=== PATIENT | female | born 1945 | race American Indian/Alaskan Native ===

== ENCOUNTER 2017-03-09 17:45 | Emergency (ER) | payer MEDICARE, MEDICAID ==
[2017-03-09 17:45] VITALS: BMI 20.1
[2017-03-09 17:55] VITALS: BP 124/52; PULSE 79; RESP 17; TEMP 97.9; O2SAT 97
--- NOTE | 2017-03-09 18:07 | ED PDOC ---
Lower Extremity Pain/Injury Time Seen by Provider: 03/09/17 17:56 Chief Complaint (Nursing): Lower Extremity Problem/Injury Chief Complaint (Provider): Bilat Leg Pain History Per: Patient History/Exam Limitations: no limitations Onset/Duration Of Symptoms: Persistent (1 week) Current Symptoms Are (Timing): Still Present Additional Complaint(s): Gabriela Sotomayor is a 71 y/o female, with a pertinent past medical history of DVT, PE, Osteoarthritis and Fibromyalgia, presenting to the ER on 03/09/2017 with complaints of bilateral leg pain and swelling over the past week. Patient reports pain, which is atraumatic, is strictly localized in her legs w. She states she took Oxycodone for her pain at 10:30 AM this morning. She denies any associated calf pain, shortness of breath, chest pain, or shortness of breath. Patient also notes she takes Plavix because she had a stroke about a year ago, in which she was admitted in this hospital. Past Medical History Reviewed: Historical Data, Nursing Documentation, Vital Signs Vital Signs: Last Vital Signs Temp 97.9 F 03/09/17 17:50 Pulse 79 03/09/17 17:50 Resp 17 03/09/17 17:50 BP 124/52 L 03/09/17 17:50 Pulse Ox 97 03/09/17 17:50 - Medical History PMH: Arthritis, Asthma, Back Problems, COPD, Depression, HTN, Hypercholesterolemia, TIA Denies: Chronic Kidney Disease Other PMH: Osteoarthritis, Fibromyalgia - Surgical History Surgical History: Cholecystectomy - Family History Family History: States: Unknown Family Hx - Social History Current smoker - smoking cessation education provided: No Alcohol: None Drugs: Denies - Home Medications Home Medications: Ambulatory Orders Medication Instructions Recorded Aspirin [Ecotrin] 81 mg PO DAILY 10/21/13 Brimonidine Tartrate [Alphagan P] 1 drop EACHEYE BID 09/23/14 Pantoprazole Sodium [Protonix] 40 mg PO DAILY 09/23/14 Pregabalin [Lyrica] 150 mg PO BID 09/23/14 Thiamine [B-1] 100 mg PO DAILY #0 tab 09/24/14 Clopidogrel [Plavix] 75 mg PO DAILY #0 tab 10/08/14 Multivitamin4 [One-A-Day] 1 tab PO DAILY 12/29/14 Simvastatin 5 mg PO DAILY 12/29/14 Albuterol Sulfate [Proair Hfa] 2 puff IH Q6H PRN 03/01/15 [place] Oil/[place]-3 Fatty Acids 500 mg PO DAILY 03/01/15 [Fish Oil 500 mg Softgel] Albuterol HFA [Ventolin HFA 90 2 puff IH RQ6 PRN #0 inhaler 03/03/15 mcg/actuation (8 g)] Aspirin [Ecotrin] 81 mg PO DAILY #0 tabec 03/03/15 Azithromycin 500 mg PO DAILY #5 tab 03/03/15 Clopidogrel [Plavix] 75 mg PO DAILY #0 tab 03/03/15 Ferrous Sulfate [Feosol] 325 mg PO DAILY #30 tab 03/03/15 Ibuprofen [Motrin] 400 mg PO TID #30 tab 03/03/15 Multimineral/Multivitamin 1 tab PO DAILY #0 tab 03/03/15 [Therapeutic-M Tab] Promethazine/Codeine 10 ml PO Q6 #0 udc 03/03/15 [Phenergan/Codeine Oral Syrup] Lidocaine 5% [Lidoderm] 1 ea TD DAILY PRN #10 patch 03/09/17 - Allergies Allergies/Adverse Reactions: Allergies Allergy/AdvReac Type Severity Reaction Status Date / Time No Known Allergies Allergy Verified 10/04/14 19:20 Review of Systems ROS Statement: Except As Marked, All Systems Reviewed And Found Negative Constitutional: Negative for: Fever Musculoskeletal: Positive for: Leg Pain ((+) bilat ) Neurological: Negative for: Weakness, Numbness Physical Exam - Reviewed Nursing Documentation Reviewed: Yes Vital Signs Reviewed: Yes - Physical Exam Appears: Positive for: Non-toxic, In Acute Distress Skin: Positive for: Normal Color. Negative for: Rash Pulses-Dorsalis Pedis (L): 2+ Pulses-Dorsalis Pedis (R): 2+ Extremity: Positive for: Normal ROM (full ROM actively of both knees), Tenderness ((+) bilat knees ), Other ((+) visible osteophites on knees bilat ; no swelling no warmth no erythema no pallor no skin changes). Negative for: Calf Tenderness (b/l) Neurologic/Psych: Positive for: Alert, Oriented, Gait (steady, unassisted). Negative for: Motor/Sensory Deficits - ECG O2 Sat by Pulse Oximetry: 97 - Radiology X-Ray: Interpreted by K[facility] (B/L knee x-rays) X-Ray Interpretation: Other (mild DJD, no fx) - Progress ED Course And Treament: Pt. searched on [place] [employer] aware and shows that pt. gets month Rx for Oxycontin, norco, and lyrica. Last Rx was filled on 02/12/17. Medical Decision Making Medical Decision Makin:56 Initial Impression- 71 y/o female with bilat leg pain and swelling Initial Plan- * Ultram 50 mg PO * XR Left Knee * XR Right Knee Documented by Lg Julio, acting as a scribe for Vitaliy Murray PA-C All medical record entries made by the Scribe were at my direction and personally dictated by me. I have reviewed the chart and agree that the record accurately reflects my personal performance of the history, physical exam, medical decision making, and the department course for this patient. I have also personally directed, reviewed, and agree with the discharge instructions and disposition. Disposition - Clinical Impression Clinical Impression: Knee pain - Patient ED Disposition Is Patient to be Admitted: No - Disposition Disposition: Routine/Home Disposition Time: 18:53 Condition: STABLE Prescriptions: Lidocaine 5% [Lidoderm] 1 ea TD DAILY PRN #10 patch PRN Reason: pain Instructions: Knee Pain (ED) Print Language: THAI
--- NOTE | 2017-03-10 13:55 | RAD ---
PROCEDURE: BILATERAL KNEES 03/09/2017 AP lateral and sunrise views of the right and left knees performed HISTORY: Pain. COMPARISON: No prior study available comparison FINDINGS: Right knee findings: No evidence of acute displaced fracture nor dislocation. The osseous structures appear intact. There appears to be calcification in the lateral joint space margin consistent with chondrocalcinosis CPPD. ; rule out CPPD. Small marginal osteophyte seen arising from the lateral tibial plateau. Evaluation for joint effusion is limited due to clothing artifact about the distal thigh. . Left knee findings: No evidence of acute displaced fracture or dislocation. There appears to be small amount of calcification in the lateral joint space margin suggesting chondrocalcinosis; rule out PPD. There is a small there appears to be a tiny at enthesophyte arising from the anterior superior margin of the patella enthesophyte arising from the anterior superior margin of the patella Tiny marginal osteophyte arising from the medial tibial plateau. Suspect small suprapatellar joint effusion. . . There Impression: No fracture seen. Mild DJD. Chondrocalcinosis; rule out CPPD. Small suprapatellar joint effusion.
== END 2017-03-09 19:15 | disposition home or self-care (01) ==
LOC: H.ER 17:45
DX: R60.0 Localized edema (principal); M79.606 Pain in leg, unspecified; Z86.73 Personal history of transient ischemic attack (TIA), and cerebral infarction without residual deficits; E78.00 Pure hypercholesterolemia, unspecified; F32.9 Major depressive disorder, single episode, unspecified; I10 Essential (primary) hypertension; M19.90 Unspecified osteoarthritis, unspecified site; M79.7 Fibromyalgia; Z79.82 Long term (current) use of aspirin; J44.9 Chronic obstructive pulmonary disease, unspecified

== ENCOUNTER 2017-04-12 14:34 | Emergency (ER) | payer MEDICARE, MEDICAID ==
[2017-04-12] MEDS ORDERED: Sodium Chloride 0.9% 1,000 ML IV STA (14:39)
--- NOTE | 2017-04-12 14:42 | ED PDOC ---
Syncope/Near Syncope/Dizziness Time Seen by Provider: 04/12/17 14:39 Chief Complaint (Nursing): Dizziness/Lightheaded History Per: Patient Onset/Duration Of Symptoms: Mins (5) Current Symptoms Are (Timing): Better Activity At Onset Of Symptoms: Standing Associated Symptoms Preceding Syncopal Episode: No Predromal Symptoms (Sudden Onset) Possible Causative Factor(s): Lightheaded W/Standing Fall Associated With With Symptoms: No Severity: Mild Additional Complaint(s): Responded to [employer] in [facility]. Pt prior to undergoing MRI developed lightheadedness. Became diaphoretic and pale. No LOC. No fall. Sat down in chair. Denies chest pain, palpitaions or headache. On [place] and Oxycontin for leg pain. Past Medical History - Medical History PMH: Arthritis, Asthma, Back Problems, COPD, Depression, HTN, Hypercholesterolemia, TIA Denies: Chronic Kidney Disease - Surgical History Surgical History: Cholecystectomy - Family History Family History: States: Unknown Family Hx - Home Medications Home Medications: Ambulatory Orders Medication Instructions Recorded Aspirin [Ecotrin] 81 mg PO DAILY 10/21/13 Brimonidine Tartrate [Alphagan P] 1 drop EACHEYE BID 09/23/14 Pantoprazole Sodium [Protonix] 40 mg PO DAILY 09/23/14 Pregabalin [Lyrica] 150 mg PO BID 09/23/14 Thiamine [B-1] 100 mg PO DAILY #0 tab 09/24/14 Clopidogrel [Plavix] 75 mg PO DAILY #0 tab 10/08/14 Multivitamin4 [One-A-Day] 1 tab PO DAILY 12/29/14 Simvastatin 5 mg PO DAILY 12/29/14 Albuterol Sulfate [Proair Hfa] 2 puff IH Q6H PRN 03/01/15 [place] Oil/[place]-3 Fatty Acids 500 mg PO DAILY 03/01/15 [Fish Oil 500 mg Softgel] Albuterol HFA [Ventolin HFA 90 2 puff IH RQ6 PRN #0 inhaler 03/03/15 mcg/actuation (8 g)] Aspirin [Ecotrin] 81 mg PO DAILY #0 tabec 03/03/15 Azithromycin 500 mg PO DAILY #5 tab 03/03/15 Clopidogrel [Plavix] 75 mg PO DAILY #0 tab 03/03/15 Ferrous Sulfate [Feosol] 325 mg PO DAILY #30 tab 03/03/15 Ibuprofen [Motrin] 400 mg PO TID #30 tab 03/03/15 Multimineral/Multivitamin 1 tab PO DAILY #0 tab 03/03/15 [Therapeutic-M Tab] Promethazine/Codeine 10 ml PO Q6 #0 udc 03/03/15 [Phenergan/Codeine Oral Syrup] Lidocaine 5% [Lidoderm] 1 ea TD DAILY PRN #10 patch 03/09/17 - Allergies Allergies/Adverse Reactions: Allergies Allergy/AdvReac Type Severity Reaction Status Date / Time No Known Allergies Allergy Verified 04/12/17 14:37 Review of Systems ROS Statement: Except As Marked, All Systems Reviewed And Found Negative Cardiovascular: Negative for: Chest Pain, Palpitations Neurological: Positive for: Dizziness Physical Exam - Reviewed Nursing Documentation Reviewed: Yes Vital Signs Reviewed: Yes - Physical Exam Appears: Positive for: Non-toxic, No Acute Distress Head Exam: Positive for: ATRAUMATIC, NORMAL INSPECTION, NORMOCEPHALIC Skin: Positive for: Normal Color, Warm, DRY Eye Exam: Positive for: EOMI, Normal appearance, PERRL ENT: Positive for: Normal ENT Inspection Neck: Positive for: Normal, Painless ROM Cardiovascular/Chest: Positive for: Regular Rate, Rhythm Respiratory: Positive for: CNT, Normal Breath Sounds Gastrointestinal/Abdominal: Positive for: Normal Exam, Bowel Sounds, Soft Back: Positive for: Normal Inspection Extremity: Positive for: Normal ROM Neurologic/Psych: Positive for: Alert, Oriented. Negative for: Motor/Sensory Deficits - Laboratory Results Result Diagrams: 04/12/17 14:51 04/12/17 14:51 Disposition - Clinical Impression Clinical Impression: Syncope, Orthostatic hypotension - Patient ED Disposition Is Patient to be Admitted: Yes - Disposition Disposition Time: 16:48 Condition: FAIR Forms: [employer] (Turkish) - Pt Status Changed To: Hospital Disposition Of: Observation - POA Present On Arrival: None
[2017-04-12 14:55] LABS: BASO # 0.1 K/uL (0.0-0.2); BASO % 1.1 % (0.0-2.0); EOS % 0.7 % (0.0-4.0); HEMOGLOBIN 12.5 g/dL (12.0-16.0); LYMPH # 2.1 K/uL (1.0-4.3); LYMPH % 32.6 % (20.0-40.0); MEAN CORPUSCULAR HEMOGLOBIN 31.3 pg (27.0-31.0); MEAN CORPUSCULAR HGB CONC 33.3 g/dL (33.0-37.0); MEAN PLATELET VOLUME 8.8 fl (7.2-11.7); MONO # 0.6 K/uL (0.0-0.8); MONO % 8.8 % (0.0-10.0); NEUT # 3.6 K/uL (1.8-7.0); NEUT % 56.8 % (50.0-75.0); RBC 3.98 Mil/uL (3.80-5.20); RED CELL DISTRIBUTION WIDTH 12.2 % (11.5-14.5); WHITE BLOOD COUNT 6.3 K/uL (4.8-10.8)
[2017-04-12 14:56] LABS: MEAN CELL VOLUME 93.9 fl (81.0-99.0)
[2017-04-12 15:12] LABS: ALB/GLOB RATIO 1.3 (1.0-2.1); ALBUMIN 4.1 g/dL (3.5-5.0); ALT/SGPT 32 U/L (9-52); AST/SGOT 29 U/L (14-36); BLOOD UREA NITROGEN 15 mg/dl (7-17); CALCIUM 9.2 mg/dL (8.4-10.2); GFR AFRICAN-AMERICAN 60; GFR NON-AFRICAN AMERICAN 49
[2017-04-12 15:25] VITALS: PULSE 58; TEMP 97.7
--- NOTE | 2017-04-12 15:40 | CARD ---
APPROVED REPORT EKG Measurement Heart [id number] <Conclusion> Normal sinus rhythm Left axis deviation Abnormal ECG
--- NOTE | 2017-04-12 16:33 | CT ---
PROCEDURE: CT HEAD WITHOUT CONTRAST. HISTORY: r/o bleed COMPARISON: 12/29/2014. TECHNIQUE: Axial computed tomography images were obtained through the head/brain without intravenous contrast. Radiation dose: Total exam DLP = 831.99 mGy-cm. This CT exam was performed using one or more of the following dose reduction techniques: Automated exposure control, adjustment of the mA and/or kV according to patient size, and/or use of iterative reconstruction technique. FINDINGS: HEMORRHAGE: No intracranial hemorrhage. BRAIN: No mass effect or edema. No atrophy or chronic microvascular ischemic changes. VENTRICLES: Unremarkable. No hydrocephalus. CALVARIUM: Unremarkable. PARANASAL SINUSES: Unremarkable as visualized. No significant inflammatory changes. MASTOID AIR CELLS: Unremarkable as visualized. No inflammatory changes. OTHER FINDINGS: None. IMPRESSION: No acute intracranial abnormalities. No significant findings to account for the clinical presentation. No significant interval change compared to the prior examination(s).
[2017-04-12 17:01] VITALS: BP 108/60; RESP 60; O2SAT 99
== END 2017-04-12 19:45 | disposition home or self-care (01) ==
LOC: H.ER 14:34 → H.ERHOLD 16:47 → UNDOADMOB 16:47 → H.ER 19:45
DX: R55 Syncope and collapse (principal); I95.1 Orthostatic hypotension; E78.00 Pure hypercholesterolemia, unspecified; M19.90 Unspecified osteoarthritis, unspecified site
CPT/HCPCS: 70450; 80053; 84484; 85025; 93005; 99285; J7040

== ENCOUNTER 2018-03-05 22:27 | Observation (INO) | payer MEDICARE, MEDICAID ==
[2018-03-06 00:11] LABS: BASO # 0.1 K/uL (0.0-0.2); BASO % 0.8 % (0.0-2.0); EOS # 0.1 K/uL (0.0-0.7); EOS % 0.8 % (0.0-4.0); HEMOGLOBIN 9.7 g/dL (12.0-16.0); LYMPH # 2.1 K/uL (1.0-4.3); LYMPH % 28.7 % (20.0-40.0); MEAN CELL VOLUME 99.3 fl (81.0-99.0); MEAN CORPUSCULAR HEMOGLOBIN 32.6 pg (27.0-31.0); MEAN CORPUSCULAR HGB CONC 32.8 g/dL (33.0-37.0); MEAN PLATELET VOLUME 9.1 fl (7.2-11.7); MONO # 0.7 K/uL (0.0-0.8); MONO % 9.2 % (0.0-10.0); NEUT # 4.4 K/uL (1.8-7.0); NEUT % 60.5 % (50.0-75.0); RBC 2.99 Mil/uL (3.80-5.20); RED CELL DISTRIBUTION WIDTH 14.5 % (11.5-14.5); WHITE BLOOD COUNT 7.3 K/uL (4.8-10.8)
[2018-03-06 00:32] LABS: ALT/SGPT 30 U/L (9-52); AST/SGOT 27 U/L (14-36); BLOOD UREA NITROGEN 14 mg/dl (7-17); CALCIUM 7.6 mg/dL (8.4-10.2); GFR AFRICAN-AMERICAN > 60; GFR NON-AFRICAN AMERICAN 55
[2018-03-06 00:33] LABS: B-TYPE NATRIURETIC PEPTIDE 938 pg/ml (0-900); INR 1.1 (0.9-1.2); PARTIAL THROMBOPLASTIN TIME 30.3 Seconds (25.6-37.1); PROTHROMBIN TIME 11.9 Seconds (9.8-13.1)
[2018-03-06] MEDS ORDERED: Magnesium Sulfate 2 gm/50 ml 2 GM/50 ML BAG IVPB ONE (00:34)
--- NOTE | 2018-03-06 00:36 | ED PDOC ---
Lower Extremity Pain/Injury Time Seen by Provider: 03/05/18 22:43 Chief Complaint (Nursing): Lower Extremity Problem/Injury Chief Complaint (Provider): Lower Extremity Problem/Injury History Per: Patient History/Exam Limitations: no limitations Onset/Duration Of Symptoms: Days (x7) Current Symptoms Are (Timing): Still Present Additional Complaint(s): Gabriela Sotomayor is a 72 year old female with a past medical history of fibromyalgia, hypertension, anemia, and hypokalemia, who is presenting to the ED for evaluation of bilateral leg swelling, onset 1 week ago. Patient states that the swelling has been worsening since onset and is associated with pain. She denies any chest pain, shortness of breath, fever, chills, and excessive heat exposure or walking. PMD: Chris Kerns Past Medical History Reviewed: Historical Data, Nursing Documentation, Vital Signs Vital Signs: Last Vital Signs Temp 98.5 F 03/05/18 22:31 Pulse 72 03/05/18 22:31 Resp 16 03/05/18 22:31 BP 143/79 03/05/18 22:31 Pulse Ox 98 03/05/18 22:31 - Medical History PMH: Arthritis, Asthma, Back Problems, COPD, Depression, HTN, Hypercholesterolemia, TIA Denies: Chronic Kidney Disease - Surgical History Surgical History: Cholecystectomy - Family History Family History: States: Unknown Family Hx - Social History Current smoker - smoking cessation education provided: No Ex-Smoker (has not smoked in the last 12 months): Yes Alcohol: None Drugs: Denies - Home Medications Home Medications: Ambulatory Orders Medication Instructions Recorded Brimonidine 0.2% [Alphagan 0.2% 1 drop EACHEYE BID 04/12/17 Opht] Clopidogrel [Plavix] 75 mg PO DAILY 04/12/17 Dicyclomine [Bentyl] 20 mg PO QID PRN 04/12/17 Meclizine [Meclizine*] 25 mg PO TID PRN 04/12/17 Pregabalin [Lyrica] 150 mg PO BID 04/12/17 Aspirin [Aspirin Chewable] 81 mg PO DAILY 03/06/18 Calcium Carbonate [Oscal] 500 mg PO BID 03/06/18 Magnesium Oxide [Magox 400] 400 mg PO BID 03/06/18 Mirtazapine [Remeron] 3.25 mg PO HS 03/06/18 Omeprazole 40 mg PO DAILY 03/06/18 Pantoprazole Sodium [Protonix] 40 mg PO DAILY 03/06/18 Potassium Chloride 10 meq PO DAILY 03/06/18 Furosemide [Lasix] 20 mg PO DAILY #30 [facility] [place] 03/07/18 - Allergies Allergies/Adverse Reactions: Allergies Allergy/AdvReac Type Severity Reaction Status Date / Time No Known Allergies Allergy Verified 03/05/18 22:31 Review of Systems ROS Statement: Except As Marked, All Systems Reviewed And Found Negative Constitutional: Negative for: Fever, Chills Cardiovascular: Negative for: Chest Pain Respiratory: Negative for: Shortness of Breath Musculoskeletal: Positive for: Leg Pain, Other (leg swelling) Physical Exam - Reviewed Nursing Documentation Reviewed: Yes Vital Signs Reviewed: Yes - Physical Exam Appears: Positive for: Non-toxic, No Acute Distress Head Exam: Positive for: ATRAUMATIC, NORMOCEPHALIC Skin: Positive for: Warm, Dry Eye Exam: Positive for: EOMI, PERRL ENT: Negative for: Pharyngeal Erythema, Tonsillar Exudate Neck: Positive for: Painless ROM, Supple Cardiovascular/Chest: Positive for: Regular Rate, Rhythm, Chest Non Tender. Negative for: Murmur Respiratory: Positive for: Normal Breath Sounds. Negative for: Wheezing Gastrointestinal/Abdominal: Positive for: Soft. Negative for: Tenderness Back: Positive for: Normal Inspection. Negative for: Decreased ROM Extremity: Positive for: Tenderness (diffuse tenderness to palpation of lower legs), Pedal Edema (bilateral lower extremities, pitting edema; right greater than the left) Lymphatic: Negative for: Adenopathy Neurologic/Psych: Positive for: Alert. Negative for: Motor/Sensory Deficits - Laboratory Results Result Diagrams: 03/06/18 00:07 03/07/18 06:30 - ECG O2 Sat by Pulse Oximetry: 98 (RA) Pulse Ox Interpretation: Normal Medical Decision Making Medical Decision Making: Time: 23:26 Impression: Leg Edema Differentials: Dependent edema, DVT, CHF, renal failure, liver disease Plan: --B Type Natriuretic Peptide --CMP --Magnesium --Phosphorous --Troponin --CBC --Coag --Glucose, POC --US Lower Extremities Labs demonstrate critically low magnesium. Ordered IV magnesium DW pt findings and plan of care. Hospitalization for low magnesium given risk of arrythmia [facility]. Scribe Attestation: Documented by, Candida Galo acting as a scribe for Miranda Quiles MD. Provider Scribe Attestation: All medical record entries made by the Scribe were at my direction and personally dictated by me. I have reviewed the chart and agree that the record accurately reflects my personal performance of the history, physical exam, medical decision making, and the department course for this patient. I have also personally directed, reviewed, and agree with the discharge instructions and disposition. Disposition - Clinical Impression Clinical Impression: Hypomagnesemia Counseled Patient/Family Regarding: Studies Performed, Diagnosis - Disposition Disposition Time: 00:00 Condition: FAIR - Pt Status Changed To: Hospital Disposition Of: Observation - POA Present On Arrival: None
[2018-03-06] MEDS ORDERED: Magnesium Sulfate 2 gm/50 ml 2 GM/50 ML BAG ONE (01:52)
--- NOTE | 2018-03-06 08:20 | US ---
PROCEDURE: Bilateral lower extremity venous duplex Doppler. HISTORY: leg swelling bilateral COMPARISON: None available. TECHNIQUE: Bilateral common femoral, superficial femoral, popliteal and posterior tibial veins were evaluated. Flow was assessed with color Doppler, compressibility, assessment of phasic flow and augmentation response. FINDINGS: COMMON FEMORAL VEIN: Right CFV: Unremarkable. Left CFV: Unremarkable. SUPERFICIAL FEMORAL VEIN: Right SFV: Unremarkable. Left SFV: Unremarkable. POPLITEAL VEIN: Right Popliteal: Unremarkable. Left Popliteal: Unremarkable. POSTERIOR TIBIAL VEIN: Right PTV: Unremarkable. Left PTV: Unremarkable. OTHER FINDINGS: None. IMPRESSION: No evidence of deep venous thrombosis. Concordant results (preliminary interpretation) provided by [facility]. Procedure Completed: 00:25 Preliminary ([facility]) Report: Dictated and Authenticated: 00:47 Final Interpretation: 08:18
--- NOTE | 2018-03-06 08:27 | RAD ---
HISTORY: Like swelling COMPARISON: 03/01/2015 FINDINGS: LUNGS: No active pulmonary disease. PLEURA: No significant pleural effusion identified, no pneumothorax apparent. CARDIOVASCULAR: Normal. OSSEOUS STRUCTURES: No significant abnormalities. VISUALIZED UPPER ABDOMEN: Normal. OTHER FINDINGS: None. IMPRESSION: No active disease. No significant interval change compared to the prior examination(s).
[2018-03-06] MEDS ORDERED: Brimonidine 0.2% 50 DROP/5 ML BOTTLE OU SCH (09:00)
--- NOTE | 2018-03-06 09:06 | CP.PCM.HP ---
History of Present Illness - History of Present Illness History of Present Illness: 72 yr old female admitted via the er because of painful swelling of legs x several days.Recently d/hernando from [facility] after therapy for electrolyte imbalance and leg cramps Hx of fibromyalgia and electrolyte imbalance. Present on Admission - Present on Admission Any Indicators Present on Admission: Yes Past Patient History - Infectious Disease Hx of Infectious Diseases: None - Tetanus Immunizations Tetanus Immunization: Unknown - Past Medical History & Family History Past Medical History?: Yes - Past Social History Alcohol: None Drugs: Denies - CARDIAC Hx Hypercholesterolemia: Yes Hx Hypertension: Yes - PULMONARY Hx Asthma: Yes Hx Chronic Obstructive Pulmonary Disease (COPD): Yes - NEUROLOGICAL Hx Transient Ischemic Attacks (TIA): Yes - HEENT Hx HEENT Problems: Yes Hx Glaucoma: Yes - RENAL Hx Chronic Kidney Disease: No - ENDOCRINE/METABOLIC Hx Endocrine Disorders: No - HEMATOLOGICAL/ONCOLOGICAL Hx Blood Disorders: Yes Hx Anemia: Yes Hx Cancer: Yes (cervix) - INTEGUMENTARY Hx Dermatological Problems: No - MUSCULOSKELETAL/RHEUMATOLOGICAL Hx Arthritis: Yes - GASTROINTESTINAL Hx Gastrointestinal Disorders: Yes Other/Comment: ABD PAIN SBO - GENITOURINARY/GYNECOLOGICAL Hx Genitourinary Disorders: Yes Hx Cervical Cancer: Yes - PSYCHIATRIC Hx Depression: Yes - SURGICAL HISTORY Hx Cholecystectomy: Yes - ANESTHESIA Hx Anesthesia: Yes Hx Anesthesia Reactions: No Hx Malignant Hyperthermia: No Meds Allergies/Adverse Reactions: Allergies Allergy/AdvReac Type Severity Reaction Status Date / Time No Known Allergies Allergy Verified 03/05/18 22:31 Physical Exam - Constitutional Appears: In Acute Distress - Head Exam Head Exam: ATRAUMATIC, NORMAL INSPECTION, NORMOCEPHALIC - Eye Exam Eye Exam: EOMI, Normal appearance, PERRL Pupil Exam: NORMAL ACCOMODATION, PERRL - ENT Exam ENT Exam: Mucous Membranes Moist, Normal Exam - Neck Exam Neck exam: Positive for: Normal Inspection - Respiratory Exam Respiratory Exam: Clear to Auscultation Bilateral, NORMAL BREATHING PATTERN - Cardiovascular Exam Cardiovascular Exam: REGULAR RHYTHM - GI/Abdominal Exam GI & Abdominal Exam: Normal Bowel Sounds, Soft. absent: Tenderness - Rectal Exam Rectal Exam: NORMAL INSPECTION - Extremities Exam Extremities exam: Positive for: pedal edema, tenderness - Back Exam Back exam: NORMAL INSPECTION - Neurological Exam Neurological exam: Alert, CN II-XII Intact, Normal Gait, Oriented x3, Reflexes Normal - Psychiatric Exam Psychiatric exam: Normal Affect, Normal Mood - Skin Skin Exam: Dry, Intact, Normal Color, Warm Results - Vital Signs Recent Vital Signs: Last Vital Signs Temp 98.2 F 03/06/18 07:32 Pulse 61 03/06/18 07:32 Resp 14 03/06/18 07:32 BP 139/83 03/06/18 07:32 Pulse Ox 99 03/06/18 07:32 - Labs Result Diagrams: 03/06/18 00:07 03/06/18 00:07 Labs: Laboratory Results - last 24 hr 03/05/18 03/06/18 03/06/18 23:32 00:07 00:07 WBC 7.3 RBC 2.99 L Hgb 9.7 L D Hct 29.6 L MCV 99.3 H D MCH 32.6 H MCHC 32.8 L RDW 14.5 Plt Count 224 MPV 9.1 Neut % (Auto) 60.5 Lymph % (Auto) 28.7 Saline % (Auto) 9.2 Eos % (Auto) 0.8 Baso % (Auto) 0.8 Neut # (Auto) 4.4 Lymph # (Auto) 2.1 Saline # (Auto) 0.7 Eos # (Auto) 0.1 Baso # (Auto) 0.1 PT INR APTT Sodium 144 Potassium 4.6 Chloride 115 H Carbon Dioxide 22 Anion Gap 12 BUN 14 Creatinine 1.0 Est GFR ( Amer) > 60 Est GFR (Non-Af Amer) 55 POC Glucose (mg/dL) 75 Random Glucose 77 Calcium 7.6 L Phosphorus 3.7 Magnesium 0.9 L* Total Bilirubin 0.2 AST 27 ALT 30 Alkaline Phosphatase 53 Troponin I < 0.0120 NT-Pro-B Natriuret Pep 938 H Total Protein 6.0 L Albumin 3.0 L D Globulin 3.1 Albumin/Globulin Ratio 1.0 03/06/18 00:07 WBC RBC Hgb Hct MCV MCH MCHC RDW Plt Count MPV Neut % (Auto) Lymph % (Auto) Saline % (Auto) Eos % (Auto) Baso % (Auto) Neut # (Auto) Lymph # (Auto) Saline # (Auto) Eos # (Auto) Baso # (Auto) PT 11.9 INR 1.1 APTT 30.3 Sodium Potassium Chloride Carbon Dioxide Anion Gap BUN Creatinine Est GFR ( Amer) Est GFR (Non-Af Amer) POC Glucose (mg/dL) Random Glucose Calcium Phosphorus Magnesium Total Bilirubin AST ALT Alkaline Phosphatase Troponin I NT-Pro-B Natriuret Pep Total Protein Albumin Globulin Albumin/Globulin Ratio Assessment & Plan - Assessment and Plan (Free Text) Assessment: pedal edema fibromyalgia electrolyte imbalance chronic anemia glaucoma Plan: continue rx as ordered iv diuretics echo monitor electrolytes - Date & Time Date: 03/06/18 Time: 09:09
[2018-03-06] MEDS ORDERED: Oxycodone/Acetaminophen 5/325 mg Tab ONE (10:18)
[2018-03-06] MEDS ORDERED: Pantoprazole 40 mg EC Tab PO ONE (10:18)
--- NOTE | 2018-03-06 10:18 | CARD ---
APPROVED REPORT EXAM: Two-dimensional and M-mode echocardiogram with Doppler and color Doppler. Other Information Quality : GoodRhythm : NSR INDICATION Peripheral Edema 2D DIMENSIONS IVSd0.63 (0.7-1.1cm)LVDd4.37 (3.9-5.9cm) LVOT Diameter1.97 (1.8-2.4cm)PWd0.78 (0.7-1.1cm) IVSs0.64 (0.8-1.2cm)LVDs2.99 (2.5-4.0cm) FS (%) 31.6 %PWs1.13 (0.8-1.2cm) M-Mode DIMENSIONS Left Atrium (MM)2.63 (2.5-4.0cm)IVSd0.60 (0.7-1.1cm) Aortic Root2.65 (2.2-3.7cm)LVDd5.40 (4.0-5.6cm) Aortic Cusp Exc.1.74 (1.5-2.0cm)PWd0.82 (0.7-1.1cm) IVSs0.99 cmFS (%) 36 % LVDs3.49 (2.0-3.8cm)PWs1.28 cm Mitral Valve MV E Auepzqpp43.5cm/sMV DECEL [id number] A Nnfdhlnt00.5cm/s MV ZET06knR/A ratio1.1MVA (PHT)3.94cm2 TDI Lateral E' Peak V12.06cm/sMedial E' Peak V12.06cm/sE/Lateral E'6.4 E/Medial E'6.4 Pulmonary Valve PV Peak Jtrfauvo99.0cm/s LEFT VENTRICLE The left ventricle is normal size. There is normal left ventricular wall thickness. The left ventricular function is normal. The left ventricular ejection fraction is within the normal range. LVEF 65% There is normal LV segmental wall motion. The left ventricular diastolic function is normal. No left ventricle thrombus noted on this study. There is no ventricular septal defect visualized. There is no left ventricular aneurysm. There is no mass noted in the left ventricle. RIGHT VENTRICLE The right ventricle is normal size. There is normal right ventricular wall thickness. The right ventricular systolic function is normal. ATRIA The left atrium size is normal. The right atrium size is normal. The interatrial septum is intact with no evidence for an atrial septal defect. AORTIC VALVE The aortic valve is normal in structure. No aortic regurgitation is present. There is no aortic valvular stenosis. There is no aortic valvular vegetation. MITRAL VALVE The mitral valve is thickened but opens well. There is no evidence of mitral valve prolapse. There is no mitral valve stenosis. Mitral regurgitation is mild. TRICUSPID VALVE The tricuspid valve is normal in structure. There is no tricuspid valve regurgitation noted. There is no tricuspid valve prolapse or vegetation. There is no tricuspid valve stenosis. PULMONIC VALVE The pulmonary valve is normal in structure. There is no pulmonic valvular regurgitation. There is no pulmonic valvular stenosis. GREAT VESSELS The aortic root is normal in size. The IVC is normal in size and collapses >50% with inspiration. PERICARDIAL EFFUSION The pericardium appears normal. There is no pleural effusion. <Conclusion> The left ventricle is normal size. There is normal left ventricular wall thickness. The left ventricular function is normal. The left ventricular ejection fraction is within the normal range. LVEF 65%
[2018-03-06] MEDS: Pantoprazole 40 mg EC Tab PO SCH (10:19)
[2018-03-06] MEDS: Oxycodone/Acetaminophen 5/325 mg Tab PO PRN ×2 (10:19→14:39)
[2018-03-06] MEDS: Brimonidine 0.2% 50 DROP/5 ML BOTTLE OU SCH (22:00)
[2018-03-07 00:28] VITALS: RESP 18
[2018-03-07 07:51] LABS: BLOOD UREA NITROGEN 22 mg/dl (7-17); CALCIUM 7.7 mg/dL (8.4-10.2); GFR AFRICAN-AMERICAN > 60; GFR NON-AFRICAN AMERICAN 55
[2018-03-07] MEDS ORDERED: Magnesium Sulfate 2 gm/50 ml 2 GM/50 ML BAG IVPB ONE (09:00)
[2018-03-07] MEDS: Pantoprazole 40 mg EC Tab PO SCH (09:17)
[2018-03-07] MEDS: Brimonidine 0.2% 50 DROP/5 ML BOTTLE OU SCH (09:21)
[2018-03-07 12:12] VITALS: PULSE 62; TEMP 97.7
[2018-03-07 13:20] VITALS: BP 98/58
--- NOTE | 2018-03-07 13:41 | CP.PCM.DIS ---
Provider - Provider Date of Admission: 03/06/18 00:43 Attending physician: Jj Washburn MD Time Spent in preparation of Discharge (in minutes): 35 Diagnosis - Discharge Diagnosis (1) Electrolyte abnormality Status: Acute (2) Hypomagnesemia Status: Acute (3) Pedal edema Status: Acute (4) Fibromyalgia Status: Acute (5) Anemia Status: Chronic Hospital Course - Lab Results Lab Results: Most Recent Lab Values WBC 7.3 K/uL (4.8-10.8) 03/06/18 00:07 RBC 2.99 Mil/uL (3.80-5.20) L 03/06/18 00:07 Hgb 9.7 g/dL (12.0-16.0) L D 03/06/18 00:07 Hct 29.6 % (34.0-47.0) L 03/06/18 00:07 MCV 99.3 fl (81.0-99.0) H D 03/06/18 00:07 MCH 32.6 pg (27.0-31.0) H 03/06/18 00:07 MCHC 32.8 g/dL (33.0-37.0) L 03/06/18 00:07 RDW 14.5 % (11.5-14.5) 03/06/18 00:07 Plt Count 224 K/uL (130-400) 03/06/18 00:07 MPV 9.1 fl (7.2-11.7) 03/06/18 00:07 Neut % (Auto) 60.5 % (50.0-75.0) 03/06/18 00:07 Lymph % (Auto) 28.7 % (20.0-40.0) 03/06/18 00:07 [place] % (Auto) 9.2 % (0.0-10.0) 03/06/18 00:07 Eos % (Auto) 0.8 % (0.0-4.0) 03/06/18 00:07 Baso % (Auto) 0.8 % (0.0-2.0) 03/06/18 00:07 Neut # (Auto) 4.4 K/uL (1.8-7.0) 03/06/18 00:07 Lymph # (Auto) 2.1 K/uL (1.0-4.3) 03/06/18 00:07 [place] # (Auto) 0.7 K/uL (0.0-0.8) 03/06/18 00:07 Eos # (Auto) 0.1 K/uL (0.0-0.7) 03/06/18 00:07 Baso # (Auto) 0.1 K/uL (0.0-0.2) 03/06/18 00:07 PT 11.9 Seconds (9.8-13.1) 03/06/18 00:07 INR 1.1 (0.9-1.2) 03/06/18 00:07 APTT 30.3 Seconds (25.6-37.1) 03/06/18 00:07 Sodium 140 mmol/l (132-148) 03/07/18 06:30 Potassium 4.5 MMOL/L (3.6-5.0) 03/07/18 06:30 Chloride 107 mmol/L (98-107) 03/07/18 06:30 Carbon Dioxide 27 mmol/L (22-30) 03/07/18 06:30 Anion Gap 11 (10-20) 03/07/18 06:30 BUN 22 mg/dl (7-17) H 03/07/18 06:30 Creatinine 1.0 mg/dl (0.7-1.2) 03/07/18 06:30 Est GFR ( Amer) > 60 03/07/18 06:30 Est GFR (Non-Af Amer) 55 03/07/18 06:30 POC Glucose (mg/dL) 75 mg/dL (65-110) 03/05/18 23:32 Random Glucose 79 mg/dL (65-105) 03/07/18 06:30 Calcium 7.7 mg/dL (8.4-10.2) L 03/07/18 06:30 Phosphorus 3.7 mg/dl (2.5-4.5) 03/06/18 00:07 Magnesium 1.2 MG/DL (1.6-2.3) L 03/07/18 06:30 Total Bilirubin 0.2 mg/dl (0.2-1.3) 03/06/18 00:07 AST 27 U/L (14-36) 03/06/18 00:07 ALT 30 U/L (9-52) 03/06/18 00:07 Alkaline Phosphatase 53 U/L (38-126) 03/06/18 00:07 Troponin I < 0.0120 ng/mL (0.00-0.120) 03/06/18 00:07 NT-Pro-B Natriuret Pep 938 pg/ml (0-900) H 03/06/18 00:07 Total Protein 6.0 G/DL (6.3-8.2) L 03/06/18 00:07 Albumin 3.0 g/dL (3.5-5.0) L D 03/06/18 00:07 Globulin 3.1 gm/dL (2.2-3.9) 03/06/18 00:07 Albumin/Globulin Ratio 1.0 (1.0-2.1) 03/06/18 00:07 - Hospital Course Hospital Course: EDEMA RESOLVED LEG PAINS RESOLVED Discharge Exam - Head Exam Head Exam: ATRAUMATIC, NORMAL INSPECTION, NORMOCEPHALIC - Eye Exam Eye Exam: EOMI, Normal appearance, PERRL Pupil Exam: NORMAL ACCOMODATION, PERRL - GI/Abdominal Exam GI & Abdominal Exam: Normal Bowel Sounds - Rectal Exam Rectal Exam: NORMAL INSPECTION - Neurological Exam Neurological exam: Alert, CN II-XII Intact, Normal Gait, Oriented x3, Reflexes Normal - Psychiatric Exam Psychiatric exam: Normal Affect, Normal Mood - Skin Skin Exam: Dry, Intact, Normal Color, Warm Discharge Plan - Discharge Medications Prescriptions: Furosemide [Lasix] 20 mg PO DAILY #30 udc - Follow Up Plan Condition: GOOD Disposition: HOME/ ROUTINE Patient education suggested?: Yes Additional Instructions: DISHARGE TODAY FOLLOW UP WITH PMD
[2018-03-08 17:22] VITALS: O2SAT 98
--- NOTE | 2018-03-10 11:20 | CARD ---
APPROVED REPORT EKG Measurement Heart [id number] <Conclusion> Sinus bradycardia Left axis deviation Anteroseptal infarct, age undetermined Abnormal ECG
== END 2018-03-07 14:32 | disposition home health service (06) ==
LOC: H.ER 22:27 → H.ERHOLD 03-06 00:43 → H.TEL 03-06 14:23
PROVIDERS: ADMIT Internal Medicine Pulmonary Disease; ATTEND Internal Medicine Pulmonary Disease
DX: E83.42 Hypomagnesemia (principal); E87.8 Other disorders of electrolyte and fluid balance, not elsewhere classified; I10 Essential (primary) hypertension; M79.7 Fibromyalgia; D64.9 Anemia, unspecified; E78.00 Pure hypercholesterolemia, unspecified; J44.9 Chronic obstructive pulmonary disease, unspecified; H40.9 Unspecified glaucoma; M19.90 Unspecified osteoarthritis, unspecified site; Z85.41 Personal history of malignant neoplasm of cervix uteri; Z86.73 Personal history of transient ischemic attack (TIA), and cerebral infarction without residual deficits; Z87.891 Personal history of nicotine dependence; Z79.02 Long term (current) use of antithrombotics/antiplatelets; Z90.49 Acquired absence of other specified parts of digestive tract
CPT/HCPCS: 36415; 71045; 80048; 80053; 82948; 83735; 83880; 84100; 84484; 85025; 85610; 85730; 93005; 93306; 93970; 96374; 99285; G0378; J1940